=== PATIENT | female | born 1975 | race Caucasian/White ===

== ENCOUNTER 2017-10-21 05:20 | Day surgery (SDC) | payer BC ==
[2017-10-20 16:04] LABS: BASOPHILS 0.3 % (0-2); EOSINOPHILS 4.3 % (0-7); HEMOGLOBIN 13.4 g/dL (12-16); IMMATURE GRANULOCYTES 0.5 % (0-5); LYMPHOCYTES 21.9 % (15-50); MCH 31.6 pg (26.0-34.0); MCHC 33.5 g/dL (31.0-37.0); MCV 94.3 fL (80.0-100.0); MEAN PLATELET VOLUME 10.2 fL (7.4-10.4); MONOCYTES 5.1 % (2-11); NEUTROPHILS 67.9 % (40-80); PLATELET COUNT 200 10x3/uL (130-400); RBC 4.24 10x6/uL (4.00-5.40); RDW 13.1 % (11.5-14.5); WBC 6.5 10x3/uL (4.8-10.8)
[2017-10-20 16:08] LABS: APTT 27.1 SECONDS (22.8-39.4); PROTIME 12.8 SECONDS (11.6-15.0)
[2017-10-20 16:10] LABS: ANION GAP 12.7 mmol/L (8-16); CALCIUM 9.2 mg/dL (8.5-10.1); CARBON DIOXIDE 26.8 mmol/L (21.0-32.0); CREATININE - SERUM 0.9 mg/dL (0.6-1.3); POTASSIUM - SERUM 3.5 mmol/L (3.5-5.1)
[~2017-10-21] VITALS: Ht 162.6 cm; Wt 114.3 kg
--- NOTE | ~2017-10-21 | OP ---
PATIENT NAME: DERRICK RITCHIE MEDICAL RECORD: [id number] :71 LOCATION:D[facility] ADMISSION DATE: SURGEON: EZIO MONTOYA MD DATE OF OPERATION: 10/21/2017 REFERRING PHYSICIAN: Dr. Kaur Logan of [place]. PREOPERATIVE DIAGNOSES: 1. Varicose veins with pain in the left leg. 2. Varicose veins with other complication, left leg. 3. Superficial thrombophlebitis, left leg. POSTOPERATIVE DIAGNOSES: 1. Varicose veins with pain in the left leg. 2. Varicose veins with other complication, left leg. 3. Superficial thrombophlebitis, left leg. OPERATION PERFORMED: Ambulatory or stab phlebectomy with 34 stab phlebectomy incisions and open ligation and division of the left greater saphenous vein and excision of mass of varicosities from the left groin. SURGEON: Ezio Montoya MD ANESTHESIA: General per DISTRIBUTION DESIGNER. PREOPERATIVE NOTE: Ms. Ritchie is a 42-year-old obese white female patient from [place], who has a long history of symptomatic varicose veins in the left leg and has been recovering from extensive superficial thrombophlebitis. She does not have truncal reflux in the greater or lesser saphenous veins, but has predominantly reflux in the anterolateral thigh vein and plexus in the left lower extremity with varicosities at the cuff that is extending down the anterior and lateral aspect of the leg. She has varicosities in the upper thigh and groin and lower abdomen as well. The reflux from which these originate is likely originating at least in part in the pelvis. She had been seeing Dr. Earline Donahue and it was Dr. Donahue's recommendation that she undergo an excision of varicose veins in the operating room rather than in the office, but she was unable to get OR time anytime soon and so instead the PCP, Dr. Logan, referred her to me. Under general anesthesia in supine position, the patient was prepped and draped in a sterile manner. I had marked the superficial varicosities with an indelible pin earlier in the morning. I used ultrasound to locate and confirm the saphenofemoral junction's location. I made an oblique incision and exposed the greater saphenous vein just below the fossa ovalis and noted a large mass of varicosities lateral to that. I ligated the greater saphenous vein and divided it superficial to the fossa ovalis, ligatures were of Vicryl and I used hemostats to occlude and then subsequently divide and ligate the varicosities contributing to the mass or Medusa's head in that groin wound. Those veins were excised and subsequently discarded as were all of the veins avulsed during phlebectomy. The phlebectomy was begun then below the knee and advanced upward until 34 stab incisions had been made and large varicosities, and many of which contained organized thrombus, were successfully removed. I did infiltrate tumescent anesthetic with dilute epinephrine and lidocaine to facilitate the procedure with hydrodissection and provide postoperative analgesia and additional hemostasis from the epinephrine. The skin incisions at the stab sites were closed with interrupted simple 4-0 Prolene. The groin wound [id number] [facility] without the use of a drain approximating subcutaneous tissues with interrupted inverted 3-0 Vicryl. Skin was closed with a running intracuticular 4-0 Monocryl and Dermabond glue. That incision was dressed with Maxorb Ag, Tegaderm, and Cavilon skin prep and additional air strip bandages were applied to the stab sites. The patient was placed in her compression stocking and the upper thigh wrapped additionally with Ruiz. She was kept in a Trendelenburg position with her legs elevated and awakened and taken to the recovery room. Blood loss during the operation was probably on the order of 50 cc. None was replaced intraoperatively. All sponges, instruments and needles were accounted for. No drain was used and I did not submit any specimens for histopathology. PLAN: The patient is to be discharged to home this afternoon, but first she is to stay in bed with her legs elevated higher than her heart for about 2 hours in the outpatient department to help assure hemostasis. When she gets home today, she is to lie down and rest with her legs elevated higher than her heart and she is to do that for long periods of time today and tonight, but she is also to get up and go for vigorous walks outdoors and also endorse she can use a treadmill or elliptical or Stairmaster, etc. I have explained to her and to her family that walking helps to propel blood out of the legs and prevent blood clots just as elevating her legs does. She is advised not to stand or stay in a dependent type position for any long period of time. I have asked that she go to her primary care physician's office in [place] to have her skin stitches removed next week and that she then return to see me in my office in about 2 weeks or so. She is given a prescription for Dilaudid 2 mg, 20 of these, she can take 1 every 4-6 hours p.r.n. for pain, but she is encouraged to take them only if she really needs them and she can try substituting or alternating ibuprofen 200-400 mg dosage. Tomorrow morning, she is to remove her stocking and remove the dressings and shower. She is to apply Bactroban ointment to the phlebectomy stab sites and then re-don her stocking. I have asked her to wear her stocking as close to 24/7 as she can until she returns to see me. TRANSINT:[id number] Voice Confirmation ID: [id number] DOCUMENT ID: [id number] EZIO MONTOYA MD at 1241 CC: KAUR LOGAN MD [id number] DICTATION DATE: 10/21/17 1409 BODY TRIMMER UPHOLSTERER: 10/21/17 1439 [facility] 10/21/17 [id number] [place] [address]
[~2017-10-21 05:20] MED LIST: DITROPAN X15 MG/BOTT PO; FOLIC ACID1 MG PO; OMEPRAZOLE40 MG PO; TEGRETOL XR200 M1 PO; TOPAMAX50 MG PO; TRIAMTERENE-HCT1 TA1 PO; ZOCOR20 MG PO
[2017-10-21 06:21] VITALS: BP 142/86; Ht 162.6 cm; Wt 114.3 kg
[2017-10-21 06:57] LABS: HCG URINE NEGATIVE (NEGATIVE)
[2017-10-21] MEDS ORDERED: MUPIROCIN22 GM TOPICAL (11:03)
[2017-10-21] MEDS ORDERED: DILAUDID2 MG PO (11:03)
== END 2017-10-21 14:15 | disposition home or self-care (01) ==
LOC: D.OPS 05:20 → D.PAN 08:00 → D.OPS 08:00
PROVIDERS: Surgery
DX: I83.812 Varicose veins of left lower extremity with pain (principal); I80.02 Phlebitis and thrombophlebitis of superficial vessels of left lower extremity; Z01.812 Encounter for preprocedural laboratory examination